=== PATIENT | male | born 1990 | race Caucasian/White ===

== ENCOUNTER 2022-04-18 13:17 | Day surgery (SDC) | payer BC ==
[~2022-04-18 13:17] MED LIST: Lactated Ringers 1,000 ML IV SCH
[2022-04-18] MEDS ORDERED: Propofol 200 MG/20 ML SDV ONE ×2 (14:17→14:30)
[2022-04-18] MEDS ORDERED: Lidocaine 2% 5 ML SDV ONE ×2 (14:17→14:32)
[2022-04-18] MEDS ORDERED: fentaNYL 100 MCG/2 ML SDV ONE (14:30)
== END 2022-04-18 15:53 | disposition home or self-care (01) ==
LOC: MW.SDS 13:17
PROVIDERS: ATTEND Surgery
DX: K21.00 Gastro-esophageal reflux disease with esophagitis, without bleeding (principal); K29.50 Unspecified chronic gastritis without bleeding; K31.89 Other diseases of stomach and duodenum; Z79.899 Other long term (current) drug therapy; Z98.890 Other specified postprocedural states
CPT/HCPCS: 43239; J2704; J3010; J7120; 00731; J3490